=== PATIENT | female | born 1955 | race African-American/Black ===

== ENCOUNTER 2021-01-27 09:10 | Inpatient (IN) | payer OTHER, MEDICAID ==
[~2021-01-27] VITALS: Ht 154.9 cm; Wt 77.8 kg
[2021-01-27] MEDS ORDERED: VANCOMYCIN 1 G PREMIX 200 ML IV ONE (09:45)
[2021-01-27] MEDS ORDERED: PIPERACILLIN/TAZ 3.375G PREMIX 50 ML IV ONE (09:45)
[2021-01-27 10:14] LABS: HEMATOCRIT. 32.4 % (36.0-48.0); HEMOGLOBIN. 10.4 g/dL (12.0-16.0); MEAN CORPUSCULAR HEMOGLOBIN 30.3 pg (28.0-32.0); MEAN CORPUSCULAR VOLUME 94.6 fL (81.0-99.0); MEAN PLATELET VOLUME 7.7 fl (7.4-10.4); PLATELET 419 x1000/uL (130-400); RED BLOOD CELL COUNT 3.43 mill/uL (4.2-5.4); RED CELL DISTRIBUTION WIDTH 16.9 % (11.6-14.6)
[2021-01-27 10:23] LABS: CHLORIDE 117 mEq/L (98-107)
[2021-01-27] MEDS ORDERED: SODIUM BICARBONATE 8.4% 1 MEQ/ML 50ML SYR IV ONE (11:00)
[2021-01-27 11:24] LABS: BG BASE EXCESS -6.3 mmol/L (-2.0-2.0); BG CARBOXYHEMOGLOBIN 0.5 % (0.5-1.5); BG DEOXYHEMOGLOBIN 2.6 % (0.0-5.0); BG FRACTION INSPIRED OXYGEN 21; BG HCO3 ACT 16.8 mmol/L (22.0-26.0); BG OXYGEN SATURATION 97.4 % (92.0-98.5); BG OXYHEMOGLOBIN 96.9 % (94.0-97.0); BG PCO2 25.6 mmHg (35.0-45.0); BG PH 7.435 (7.350-7.450); BG PO2 94.3 mmHg (75.0-100.0); BG SAMPLE SITE LEFT BRACHIAL; BG TOTAL HEMOGLOBIN 9.4 g/dL (12.0-18.0); BG VENT MODE ROOM AIR
[2021-01-27] MEDS ORDERED: FUROSEMIDE 20MG/2ML VIAL IVP ONE (11:30)
[2021-01-27 11:33] LABS: PROTHROMBIN TIME 10.9 sec (9.6-11.0)
[2021-01-27 13:09] LABS: PLATELET ESTIMATE INCREASED
[2021-01-27 15:34] LABS: CLARITY URINE CLEAR (CLEAR); COLOR URINE YELLOW (YELLOW); KETONES URINE NEGATIVE (NEGATIVE); LEUKOCYTE ESTERASE URINE NEGATIVE (NEGATIVE); NITRITE URINE NEGATIVE (NEGATIVE); OCCULT BLOOD URINE NEGATIVE (NEGATIVE); PH URINE 5.5 (4.5-8.0); PROTEIN URINE NEGATIVE (NEGATIVE); SPECIFIC GRAVITY URINE 1.009 (1.005-1.030); UROBILINOGEN URINE 0.2 E.U./dL (0.2-1.0)
[2021-01-27 22:42] VITALS: BP 113/42
[2021-01-27 23:00] VITALS: BP 113/42
[2021-01-27] MEDS ORDERED: FOLI-43 PO (23:50)
[2021-01-28] VITALS: BP 111/55
[2021-01-28] MEDS: CEFTRIAXONE 1,000 MG in DEXTROSE 5% WATER 50 ML IV SCH (03:52)
[2021-01-28 04:00] VITALS: BP 103/66
[2021-01-28] MEDS: ACETAMINOPHEN 325MG TABLET PO PRN (04:02)
[2021-01-28 06:46] LABS: BASOPHILS % 0.3 % (0.0-2.0); EOSINOPHILS % 0.3 % (0.0-5.0); HEMOGLOBIN. 7.2 g/dL (12.0-16.0); LYMPHOCYTES % 12.5 % (20.0-50.0); MEAN CORPUSCULAR HEMOGLOBIN 30.7 pg (28.0-32.0); MEAN CORPUSCULAR VOLUME 93.3 fL (81.0-99.0); MEAN PLATELET VOLUME 7.4 fl (7.4-10.4); MONOCYTES % 12.6 % (2.0-8.0); NEUTROPHILS % 74.3 % (40.0-76.0); PLATELET 277 x1000/uL (130-400); RED BLOOD CELL COUNT 2.36 mill/uL (4.2-5.4); RED CELL DISTRIBUTION WIDTH 16.4 % (11.6-14.6)
[2021-01-28 06:53] LABS: CHLORIDE 117 mEq/L (98-107)
[2021-01-28 08:00] VITALS: BP 124/53
[2021-01-28] MEDS: FUROSEMIDE 40MG/4ML VIAL IVP SCH ×2 (10:01→21:00)
[2021-01-28] MEDS: LISINOPRIL 20MG TABLET PO SCH (10:08)
[2021-01-28] MEDS: ENOXAPARIN 40MG/0.4ML SYR SUBCUT SCH (10:09)
[2021-01-28 12:00] VITALS: BP 120/53
[2021-01-28 16:00] VITALS: BP 105/49
[2021-01-28] MEDS: POTASSIUM CHLORIDE 20MEQ TABLET SR PO SCH ×2 (16:29→21:51)
[2021-01-28 20:00] VITALS: BP 99/47
[2021-01-28] MEDS: MORPHINE SULFATE 2 MG/ML CPJ (NOT FOR IM USE) IV PRN (22:13)
[2021-01-29] VITALS: BP 117/50
[2021-01-29] MEDS: POTASSIUM CHLORIDE 20MEQ TABLET SR PO SCH (00:38)
[2021-01-29] MEDS: CEFTRIAXONE 1,000 MG in DEXTROSE 5% WATER 50 ML IV SCH (00:40)
[2021-01-29 04:00] VITALS: BP 100/48
[2021-01-29] MEDS: MORPHINE SULFATE 2 MG/ML CPJ (NOT FOR IM USE) IV PRN ×3 (07:04→13:22)
[2021-01-29 08:00] VITALS: BP 132/62
[2021-01-29] MEDS: FUROSEMIDE 40MG/4ML VIAL IVP SCH ×2 (09:23→21:04)
[2021-01-29] MEDS: LISINOPRIL 20MG TABLET PO SCH (09:23)
[2021-01-29] MEDS: ACETAMINOPHEN 325MG TABLET PO PRN (10:15)
[2021-01-29 12:00] VITALS: BP 106/53
[2021-01-29] MEDS ORDERED: MAGNESIUM/ALUMINUM HYDROXIDE/SIMETHICONE 30ML UDC PO PRN (15:30)
[2021-01-29] MEDS ORDERED: CLONIDINE 0.1MG TABLET PO PRN (15:30)
[2021-01-29] MEDS ORDERED: IPRATROPIUM/ALBUTEROL 0.5-3(2.5)MG/3ML NEB HHN PRN (15:30)
[2021-01-29] MEDS ORDERED: ONDANSETRON HCL 4MG/2ML INJ IV PRN (15:30)
[2021-01-29 16:30] VITALS: BP 140/65
[2021-01-29] MEDS: HYDROCODONE/ACETAMINOPHEN 5/325MG TABLET PO PRN ×2 (18:33→22:40)
[2021-01-29 20:00] VITALS: BP 132/62
[2021-01-29 21:31] LABS: HEMATOCRIT 24.9 % (36.0-48.0); HEMOGLOBIN 8.3 g/dL (12.0-16.0); MEAN CORPUSCULAR HEMOGLOBIN 30.4 pg (28.0-32.0); MEAN CORPUSCULAR VOLUME 90.7 fL (81.0-99.0); PLATELET 323 x1000/uL (130-400); RED BLOOD CELL COUNT 2.75 mill/uL (4.2-5.4); RED CELL DISTRIBUTION WIDTH 16.2 % (11.6-14.6)
[2021-01-29 21:39] LABS: CHLORIDE 112 mEq/L (98-107)
[2021-01-29 21:47] LABS: TOTAL IRON BINDING CAPACITY 239 ug/dL (250-450)
[2021-01-29] MEDS: DOCUSATE SODIUM 100MG CAPSULE PO PRN (22:39)
[2021-01-30] VITALS: BP 130/57
[2021-01-30] MEDS: CEFTRIAXONE 1,000 MG in DEXTROSE 5% WATER 50 ML IV SCH (01:30)
[2021-01-30 04:00] VITALS: BP 125/58
[2021-01-30] MEDS: OMEPRAZOLE 20MG CAPSULE EXTENDED RELEASE PO SCH (06:06)
[2021-01-30] MEDS: HYDROCODONE/ACETAMINOPHEN 5/325MG TABLET PO PRN ×3 (06:14→20:03)
[2021-01-30 07:20] LABS: CHLORIDE 107 mEq/L (98-107)
[2021-01-30 07:22] LABS: BASOPHILS % 0.5 % (0.0-2.0); EOSINOPHILS % 3.2 % (0.0-5.0); HEMATOCRIT. 25.5 % (36.0-48.0); HEMOGLOBIN. 8.4 g/dL (12.0-16.0); LYMPHOCYTES % 16.8 % (20.0-50.0); MEAN CORPUSCULAR HEMOGLOBIN 30.3 pg (28.0-32.0); MEAN CORPUSCULAR VOLUME 91.9 fL (81.0-99.0); MEAN PLATELET VOLUME 7.3 fl (7.4-10.4); MONOCYTES % 9.1 % (2.0-8.0); NEUTROPHILS % 70.4 % (40.0-76.0); PLATELET 318 x1000/uL (130-400); RED BLOOD CELL COUNT 2.77 mill/uL (4.2-5.4); RED CELL DISTRIBUTION WIDTH 16.4 % (11.6-14.6)
[2021-01-30 07:28] LABS: HDL CHOLESTEROL 46 mg/dL (40-59)
[2021-01-30 07:29] LABS: PHOSPHORUS 3.4 mg/dL (2.5-4.9)
[2021-01-30 07:30] LABS: LDL CHOLESTEROL 56 mg/dL (5-100)
[2021-01-30 08:00] VITALS: BP 132/73
[2021-01-30] MEDS: LISINOPRIL 20MG TABLET PO SCH (10:04)
[2021-01-30] MEDS: FUROSEMIDE 40MG/4ML VIAL IVP SCH ×2 (10:05→20:03)
[2021-01-30 12:00] VITALS: BP 127/61
[2021-01-30] MEDS: MORPHINE SULFATE 2 MG/ML CPJ (NOT FOR IM USE) IV PRN ×2 (13:32→17:49)
[2021-01-30 16:00] VITALS: BP 157/75
[2021-01-30] MEDS ORDERED: LACTULOSE 20G/30ML UDC PO NR (17:30)
[2021-01-30 20:00] VITALS: BP 113/56
[2021-01-30] MEDS: DILTIAZEM HCL 60MG TABLET PO SCH (22:01)
[2021-01-31] VITALS (7 sets, daily range): BP systolic 114–149; BP diastolic 53–72
[2021-01-31] MEDS: CEFTRIAXONE 1,000 MG in DEXTROSE 5% WATER 50 ML IV SCH (00:31)
[2021-01-31] MEDS: HYDROCODONE/ACETAMINOPHEN 5/325MG TABLET PO PRN ×2 (00:39→09:35)
[2021-01-31] MEDS: DILTIAZEM HCL 60MG TABLET PO SCH ×3 (05:04→22:56)
[2021-01-31] MEDS: DOCUSATE SODIUM 100MG CAPSULE PO PRN ×2 (05:05→22:56)
[2021-01-31] MEDS: MORPHINE SULFATE 2 MG/ML CPJ (NOT FOR IM USE) IV PRN ×2 (05:05→20:09)
[2021-01-31 06:52] LABS: CHLORIDE 102 mEq/L (98-107)
[2021-01-31] MEDS: OMEPRAZOLE 20MG CAPSULE EXTENDED RELEASE PO SCH (06:52)
[2021-01-31 07:05] LABS: BASOPHILS % 0.2 % (0.0-2.0); EOSINOPHILS % 3.6 % (0.0-5.0); HEMATOCRIT. 24.6 % (36.0-48.0); HEMOGLOBIN. 8.4 g/dL (12.0-16.0); LYMPHOCYTES % 17.7 % (20.0-50.0); MEAN CORPUSCULAR HEMOGLOBIN 30.6 pg (28.0-32.0); MEAN CORPUSCULAR VOLUME 89.8 fL (81.0-99.0); MEAN PLATELET VOLUME 7.3 fl (7.4-10.4); MONOCYTES % 12.1 % (2.0-8.0); NEUTROPHILS % 66.4 % (40.0-76.0); PLATELET 341 x1000/uL (130-400); RED BLOOD CELL COUNT 2.74 mill/uL (4.2-5.4); RED CELL DISTRIBUTION WIDTH 15.8 % (11.6-14.6)
[2021-01-31] MEDS: FUROSEMIDE 40MG/4ML VIAL IVP SCH ×2 (09:33→20:08)
[2021-01-31] MEDS: SULFAMETHOXAZOLE/TRIMETHOPRIM 800/160MG TABLET PO SCH ×2 (13:18→22:57)
[2021-01-31] MEDS: ACETAMINOPHEN 325MG TABLET PO PRN (16:45)
[2021-01-31] MEDS: FAMOTIDINE 20MG TABLET PO SCH (20:08)
[2021-02-01] VITALS: BP 119/65
[2021-02-01 04:00] VITALS: BP 131/54
[2021-02-01] MEDS: DILTIAZEM HCL 60MG TABLET PO SCH ×3 (06:01→21:44)
[2021-02-01] MEDS: HYDROCODONE/ACETAMINOPHEN 5/325MG TABLET PO PRN ×2 (06:21→10:54)
[2021-02-01 07:11] LABS: CHLORIDE 97 mEq/L (98-107)
[2021-02-01 07:22] LABS: BASOPHILS % 0.3 % (0.0-2.0); EOSINOPHILS % 3.5 % (0.0-5.0); HEMOGLOBIN. 9.4 g/dL (12.0-16.0); LYMPHOCYTES % 17.9 % (20.0-50.0); MEAN CORPUSCULAR HEMOGLOBIN 29.8 pg (28.0-32.0); MEAN CORPUSCULAR VOLUME 91.9 fL (81.0-99.0); MEAN PLATELET VOLUME 7.2 fl (7.4-10.4); MONOCYTES % 13.4 % (2.0-8.0); NEUTROPHILS % 64.9 % (40.0-76.0); PLATELET 417 x1000/uL (130-400); RED BLOOD CELL COUNT 3.15 mill/uL (4.2-5.4); RED CELL DISTRIBUTION WIDTH 15.9 % (11.6-14.6)
[2021-02-01 08:00] VITALS: BP 115/50
[2021-02-01] MEDS: DOCUSATE SODIUM 100MG CAPSULE PO PRN (09:03)
[2021-02-01] MEDS: FAMOTIDINE 20MG TABLET PO SCH ×2 (09:03→21:44)
[2021-02-01] MEDS: FUROSEMIDE 40MG/4ML VIAL IVP SCH ×2 (09:03→21:44)
[2021-02-01] MEDS: SULFAMETHOXAZOLE/TRIMETHOPRIM 800/160MG TABLET PO SCH ×2 (09:03→21:44)
[2021-02-01] MEDS ORDERED: LACTULOSE 20G/30ML UDC PO NR (11:45)
[2021-02-01] MEDS ORDERED: BISACODYL 10MG SUPP PR PRN (11:45)
[2021-02-01 12:00] VITALS: BP 168/73
[2021-02-01 16:00] VITALS: BP 110/59
[2021-02-01 20:00] VITALS: BP 128/65
[2021-02-02] VITALS: BP 132/53
[2021-02-02 04:00] VITALS: BP 105/50
[2021-02-02] MEDS: DILTIAZEM HCL 60MG TABLET PO SCH ×3 (05:18→22:00)
[2021-02-02 08:00] VITALS: BP 117/56
[2021-02-02] MEDS: ENOXAPARIN 40MG/0.4ML SYR SUBCUT SCH (09:05)
[2021-02-02] MEDS: FUROSEMIDE 40MG/4ML VIAL IVP SCH ×2 (09:05→20:28)
[2021-02-02] MEDS: SULFAMETHOXAZOLE/TRIMETHOPRIM 800/160MG TABLET PO SCH ×2 (09:05→20:28)
[2021-02-02] MEDS: FAMOTIDINE 20MG TABLET PO SCH ×2 (09:05→20:28)
[2021-02-02 12:00] VITALS: BP 121/58
[2021-02-02 12:21] LABS: HEMATOCRIT. 27.3 % (36.0-48.0); MEAN CORPUSCULAR HEMOGLOBIN 29.6 pg (28.0-32.0); MEAN CORPUSCULAR VOLUME 89.6 fL (81.0-99.0); MEAN PLATELET VOLUME 7.7 fl (7.4-10.4); PLATELET 472 x1000/uL (130-400); RED BLOOD CELL COUNT 3.05 mill/uL (4.2-5.4); RED CELL DISTRIBUTION WIDTH 15.4 % (11.6-14.6)
[2021-02-02 13:50] LABS: CHLORIDE 96 mEq/L (98-107)
[2021-02-02 14:04] LABS: PLATELET ESTIMATE MARKEDLY INCREASED
[2021-02-02 16:00] VITALS: BP 125/60
[2021-02-02 20:00] VITALS: BP 106/55
[2021-02-02] MEDS: ACETAMINOPHEN 325MG TABLET PO PRN (20:28)
[2021-02-03] VITALS: BP 124/61
[2021-02-03 04:00] VITALS: BP 132/56
[2021-02-03] MEDS: DILTIAZEM HCL 60MG TABLET PO SCH ×2 (05:31→12:50)
[2021-02-03 08:00] VITALS: BP 133/57
[2021-02-03] MEDS: ENOXAPARIN 40MG/0.4ML SYR SUBCUT SCH (08:47)
[2021-02-03] MEDS: FUROSEMIDE 40MG/4ML VIAL IVP SCH ×2 (08:47→21:13)
[2021-02-03] MEDS: SULFAMETHOXAZOLE/TRIMETHOPRIM 800/160MG TABLET PO SCH ×2 (08:47→21:13)
[2021-02-03] MEDS: FAMOTIDINE 20MG TABLET PO SCH ×2 (08:47→21:14)
[2021-02-03] MEDS: ACETAMINOPHEN 325MG TABLET PO PRN ×2 (08:49→19:15)
[2021-02-03 13:00] VITALS: BP 170/68
[2021-02-03] MEDS: DILTIAZEM HCL 120MG CAPSULE CD 24HR PO SCH (14:26)
[2021-02-03 16:00] VITALS: BP 131/61
[2021-02-03 20:00] VITALS: BP 111/66
[2021-02-04] VITALS: BP 130/66
[2021-02-04 04:00] VITALS: BP 126/56
[2021-02-04] MEDS: ACETAMINOPHEN 325MG TABLET PO PRN ×4 (06:11→21:16)
[2021-02-04 08:00] VITALS: BP 138/62
[2021-02-04] MEDS: DILTIAZEM HCL 120MG CAPSULE CD 24HR PO SCH (10:50)
[2021-02-04] MEDS: ENOXAPARIN 40MG/0.4ML SYR SUBCUT SCH (10:50)
[2021-02-04] MEDS: FUROSEMIDE 40MG/4ML VIAL IVP SCH ×2 (10:50→21:15)
[2021-02-04] MEDS: FAMOTIDINE 20MG TABLET PO SCH ×2 (10:51→21:15)
[2021-02-04] MEDS: SULFAMETHOXAZOLE/TRIMETHOPRIM 800/160MG TABLET PO SCH ×2 (10:51→21:15)
[2021-02-04 12:00] VITALS: BP 99/63
[2021-02-04] MEDS: DOCUSATE SODIUM 100MG CAPSULE PO PRN (12:09)
[2021-02-04 16:00] VITALS: BP 132/61
[2021-02-04 16:10] LABS: CLARITY URINE CLEAR (CLEAR); COLOR URINE YELLOW (YELLOW); KETONES URINE NEGATIVE (NEGATIVE); LEUKOCYTE ESTERASE URINE NEGATIVE (NEGATIVE); NITRITE URINE NEGATIVE (NEGATIVE); OCCULT BLOOD URINE NEGATIVE (NEGATIVE); PROTEIN URINE NEGATIVE (NEGATIVE); SPECIFIC GRAVITY URINE 1.016 (1.005-1.030)
[2021-02-04 17:34] LABS: BASOPHILS % 1.2 % (0.0-2.0); EOSINOPHILS % 3.2 % (0.0-5.0); HEMATOCRIT. 26.8 % (36.0-48.0); HEMOGLOBIN. 8.9 g/dL (12.0-16.0); LYMPHOCYTES % 30.1 % (20.0-50.0); MEAN CORPUSCULAR HEMOGLOBIN 30.1 pg (28.0-32.0); MEAN CORPUSCULAR VOLUME 90.4 fL (81.0-99.0); MONOCYTES % 14.1 % (2.0-8.0); NEUTROPHILS % 51.4 % (40.0-76.0); PLATELET 628 x1000/uL (130-400); RED BLOOD CELL COUNT 2.96 mill/uL (4.2-5.4); RED CELL DISTRIBUTION WIDTH 15.2 % (11.6-14.6)
[2021-02-04 17:38] LABS: CHLORIDE 97 mEq/L (98-107)
[2021-02-04 20:00] VITALS: BP 133/61
[2021-02-05] VITALS (7 sets, daily range): BP systolic 116–155; BP diastolic 57–83
[2021-02-05] MEDS: ACETAMINOPHEN 325MG TABLET PO PRN ×3 (03:41→20:19)
[2021-02-05] MEDS: DILTIAZEM HCL 120MG CAPSULE CD 24HR PO SCH (09:00)
[2021-02-05] MEDS: FUROSEMIDE 40MG/4ML VIAL IVP SCH ×2 (09:00→20:19)
[2021-02-05] MEDS: ENOXAPARIN 40MG/0.4ML SYR SUBCUT SCH (09:00)
[2021-02-05] MEDS: FAMOTIDINE 20MG TABLET PO SCH ×2 (09:00→20:19)
[2021-02-05] MEDS: DOCUSATE SODIUM 100MG CAPSULE PO PRN (09:00)
[2021-02-05] MEDS: SULFAMETHOXAZOLE/TRIMETHOPRIM 800/160MG TABLET PO SCH ×2 (09:01→20:19)
[2021-02-06] VITALS: BP 134/65
== END 2021-02-06 02:30 | DRG 871 ==
LOC: ER 09:10 → 5WST 11:26 → EDBEDREQ 11:29 → ENRESERV 20:52
PROVIDERS: ADMIT Internal Medicine; ATTEND Internal Medicine
DX: A41.9 Sepsis, unspecified organism (principal); I50.33 Acute on chronic diastolic (congestive) heart failure; L03.115 Cellulitis of right lower limb; L97.919 Non-pressure chronic ulcer of unspecified part of right lower leg with unspecified severity; L97.929 Non-pressure chronic ulcer of unspecified part of left lower leg with unspecified severity; L03.116 Cellulitis of left lower limb; I87.8 Other specified disorders of veins; I87.2 Venous insufficiency (chronic) (peripheral); J44.9 Chronic obstructive pulmonary disease, unspecified; S80.822A Blister (nonthermal), left lower leg, initial encounter; I73.9 Peripheral vascular disease, unspecified; D64.9 Anemia, unspecified; E87.6 Hypokalemia; I11.0 Hypertensive heart disease with heart failure; X58.XXXA Exposure to other specified factors, initial encounter; E66.9 Obesity, unspecified; Z88.9 Allergy status to unspecified drugs, medicaments and biological substances; Z99.3 Dependence on wheelchair; Y93.89 Activity, other specified; Y92.89 Other specified places as the place of occurrence of the external cause; Y99.8 Other external cause status; Z68.32 Body mass index [BMI] 32.0-32.9, adult; R53.81 Other malaise; M21.922 Unspecified acquired deformity of left upper arm
CPT/HCPCS: 36415; 36600; 71045; 73030; 73630; 80048; 80053; 80061; 80076; 81003; 82270; 82375; 82805; 82962; 83540; 83550; 83605; 83735; 83880; 84100; 84145; 84443; 84484; 85025; 85027; 85044; 87077; 87186; 93005; 93306; 93923; 93970; 97022; 97110; 97162; 97164; 97166; 97530; 99291; C1893; J0696; J1650; J1940; J2270; J2543; J3370; J3490; J7040; J7060; A4315

== ENCOUNTER 2022-03-24 18:32 | Inpatient (IN) | payer OTHER, MEDICAID ==
[~2022-03-24] VITALS: Ht 167.6 cm; Wt 88.0 kg
[~2022-03-24 18:32] MED LIST: FOLI-43 PO
[2022-03-24] MEDS ORDERED: PIPERACILLIN/TAZ 3.375G PREMIX 50 ML IV ONE (19:15)
[2022-03-24] MEDS ORDERED: SODIUM CHLORIDE 0.9% 1000ML BAG (SEPSIS BOLUS) IV ONE (19:15)
[2022-03-24] MEDS ORDERED: VANCOMYCIN 1G PREMIX 200 ML IV ONE (19:15)
[2022-03-24] MEDS ORDERED: MORPHINE SULFATE 4 MG/ML CPJ (NOT FOR IM USE) IV STA (19:16)
[2022-03-24] MEDS ORDERED: ONDANSETRON HCL 4MG/2ML INJ IV STA (19:16)
[2022-03-24 19:46] LABS: BASOPHILS % 0.2 % (0.0-2.0); EOSINOPHILS % 0.3 % (0.0-5.0); HEMATOCRIT. 33.6 % (36.0-48.0); HEMOGLOBIN. 10.8 g/dL (12.0-16.0); LYMPHOCYTES % 8.1 % (20.0-50.0); MEAN CORPUSCULAR HEMOGLOBIN 28.7 pg (28.0-32.0); MEAN CORPUSCULAR VOLUME 89.4 fL (81.0-99.0); MEAN PLATELET VOLUME 7.4 fl (7.4-10.4); MONOCYTES % 4.9 % (2.0-8.0); NEUTROPHILS % 86.5 % (40.0-76.0); PLATELET 309 x1000/uL (130-400); RED BLOOD CELL COUNT 3.76 mill/uL (4.2-5.4); RED CELL DISTRIBUTION WIDTH 15.4 % (11.6-14.6)
[2022-03-24 19:55] LABS: CHLORIDE 114 mEq/L (98-107)
[2022-03-24 19:57] LABS: PARTIAL THROMBOPLASTIN TIME 27.1 sec (23.4-31.0); PROTHROMBIN TIME 10.9 sec (9.6-11.0)
[2022-03-24] MEDS ORDERED: VANCOMYCIN 1G PREMIX 200 ML IV NR (22:15)
[2022-03-24] MEDS ORDERED: ONDANSETRON HCL 4MG/2ML INJ IV NR (22:15)
[2022-03-24] MEDS ORDERED: PIPERACILLIN/TAZ 3.375G PREMIX 50 ML IV NR (22:15)
[2022-03-24 22:47] LABS: CLARITY URINE CLOUDY (CLEAR); COLOR URINE YELLOW (YELLOW); KETONES URINE NEGATIVE (NEGATIVE); LEUKOCYTE ESTERASE URINE 2+ (NEGATIVE); NITRITE URINE POSITIVE (NEGATIVE); OCCULT BLOOD URINE 2+ (NEGATIVE); PROTEIN URINE 1+ (NEGATIVE); SPECIFIC GRAVITY URINE 1.022 (1.005-1.030); UROBILINOGEN URINE 0.2 E.U./dL (0.2-1.0)
[2022-03-24] MEDS: MORPHINE SULFATE 4 MG/ML CPJ (NOT FOR IM USE) IV NR (22:53)
[2022-03-25] MEDS: MORPHINE SULFATE 4 MG/ML CPJ (NOT FOR IM USE) IV NR ×2 (02:19→03:47)
[2022-03-25 09:04] VITALS: BP 137/74
[2022-03-25] MEDS ORDERED: HYDROCODONE/ACETAMINOPHEN 5/325MG TABLET PO PRN (11:00)
[2022-03-25] MEDS ORDERED: ONDANSETRON HCL 4MG/2ML INJ IV PRN (11:00)
[2022-03-25 12:00] VITALS: BP 135/59
[2022-03-25] MEDS ORDERED: VANCOMYCIN 1G PREMIX 200 ML IV SCH (13:00)
[2022-03-25] MEDS: CEFTRIAXONE 1,000 MG in DEXTROSE 5% WATER 50 ML IV SCH (13:32)
[2022-03-25] MEDS: DIPHENHYDRAMINE 25MG CAPSULE PO PRN (15:38)
[2022-03-25] MEDS: ACETAMINOPHEN 325MG TABLET PO PRN ×2 (15:38→23:53)
[2022-03-25 16:00] VITALS: BP 137/61
[2022-03-25 20:00] VITALS: BP 134/64
[2022-03-26] VITALS: BP 132/64
[2022-03-26 04:00] VITALS: BP 143/63
[2022-03-26 08:00] VITALS: BP 156/74
[2022-03-26] MEDS ORDERED: VANCOMYCIN 1G PREMIX 200 ML IV SCH (08:00)
[2022-03-26] MEDS: CEFTRIAXONE 1,000 MG in DEXTROSE 5% WATER 50 ML IV SCH (10:03)
[2022-03-26 12:00] VITALS: BP 142/70
[2022-03-26 16:00] VITALS: BP 138/72
[2022-03-26] MEDS: ACETAMINOPHEN 325MG TABLET PO PRN (19:22)
[2022-03-26] MEDS ORDERED: NALOXONE HCL 0.4MG/ML VIAL IV PRN (19:45)
[2022-03-26 20:00] VITALS: BP 164/60
[2022-03-26] MEDS: CLONIDINE 0.1MG TABLET PO PRN (20:58)
[2022-03-27] VITALS: BP 149/63
[2022-03-27 01:44] LABS: CHLORIDE 107 mEq/L (98-107)
[2022-03-27 04:00] VITALS: BP 144/62
[2022-03-27] MEDS ORDERED: VANCOMYCIN 1G PREMIX 200 ML IV SCH (04:00)
[2022-03-27 08:00] VITALS: BP 154/61
[2022-03-27] MEDS: CEFTRIAXONE 1,000 MG in DEXTROSE 5% WATER 50 ML IV SCH (09:35)
[2022-03-27] MEDS: ACETAMINOPHEN 325MG TABLET PO PRN ×2 (10:03→20:40)
[2022-03-27 12:00] VITALS: BP 152/64
[2022-03-27] MEDS ORDERED: BACL20TA PO (13:53)
[2022-03-27] MEDS ORDERED: VANCOMYCIN 750 MG in DEXT 5% WATER 250 ML IV SCH (14:00)
[2022-03-27] MEDS ORDERED: VANCOMYCIN 750MG PREMIX 150 ML IV SCH (14:00)
[2022-03-27 16:00] VITALS: BP 150/58
[2022-03-27] MEDS: DIPHENHYDRAMINE 25MG CAPSULE PO PRN (17:23)
[2022-03-27 20:00] VITALS: BP 146/63
[2022-03-27] MEDS: BACLOFEN 10MG TABLET PO SCH (21:46)
[2022-03-28] VITALS: BP 139/70
[2022-03-28 04:15] VITALS: BP 160/73
[2022-03-28] MEDS: BACLOFEN 10MG TABLET PO SCH ×3 (05:40→21:23)
[2022-03-28] MEDS: DIPHENHYDRAMINE 25MG CAPSULE PO PRN ×2 (05:52→14:11)
[2022-03-28 08:00] VITALS: BP 150/68
[2022-03-28] MEDS: CEFTRIAXONE 1,000 MG in DEXTROSE 5% WATER 50 ML IV SCH (08:10)
[2022-03-28 12:00] VITALS: BP 152/70
[2022-03-28] MEDS: ACETAMINOPHEN 325MG TABLET PO PRN ×2 (12:43→12:45)
[2022-03-28] MEDS: MULTIVITAMINS,THER W-MINERALS TABLET PO SCH (14:11)
[2022-03-28] MEDS: VANCOMYCIN 750MG PREMIX 150 ML IV SCH (14:11)
[2022-03-28] MEDS: GABAPENTIN 300MG CAPSULE PO SCH ×2 (14:31→21:23)
[2022-03-28 15:34] VITALS: BP 153/78
[2022-03-28 20:00] VITALS: BP 149/66
[2022-03-29] VITALS: BP 136/59
[2022-03-29] MEDS: VANCOMYCIN 750MG PREMIX 150 ML IV SCH ×2 (01:31→18:02)
[2022-03-29 04:00] VITALS: BP 138/63
[2022-03-29] MEDS: BACLOFEN 10MG TABLET PO SCH ×3 (05:14→22:21)
[2022-03-29] MEDS: GABAPENTIN 300MG CAPSULE PO SCH ×3 (05:14→22:22)
[2022-03-29 08:00] VITALS: BP 152/63
[2022-03-29] MEDS: CEFTRIAXONE 1,000 MG in DEXTROSE 5% WATER 50 ML IV SCH (08:03)
[2022-03-29] MEDS: MULTIVITAMINS,THER W-MINERALS TABLET PO SCH (08:03)
[2022-03-29 12:00] VITALS: BP 153/56
[2022-03-29 12:34] LABS: CHLORIDE 109 mEq/L (98-107)
[2022-03-29] MEDS: ACETAMINOPHEN 325MG TABLET PO PRN ×2 (14:22→22:26)
[2022-03-29 16:00] VITALS: BP 145/64
[2022-03-29 20:00] VITALS: BP 140/79
[2022-03-30] MEDS: DIPHENHYDRAMINE 25MG CAPSULE PO PRN ×2 (00:29→18:15)
[2022-03-30 04:00] VITALS: BP 137/54
[2022-03-30] MEDS: VANCOMYCIN 750MG PREMIX 150 ML IV SCH ×2 (06:01→18:15)
[2022-03-30] MEDS: GABAPENTIN 300MG CAPSULE PO SCH ×3 (06:01→22:44)
[2022-03-30] MEDS: BACLOFEN 10MG TABLET PO SCH ×3 (06:02→22:44)
[2022-03-30] MEDS: ACETAMINOPHEN 325MG TABLET PO PRN (07:44)
[2022-03-30 08:00] VITALS: BP 122/51
[2022-03-30] MEDS: MULTIVITAMINS,THER W-MINERALS TABLET PO SCH (08:32)
[2022-03-30 12:00] VITALS: BP 138/53
[2022-03-30] MEDS ORDERED: LACTULOSE 20G/30ML UDC PO NR (14:15)
[2022-03-30 16:00] VITALS: BP 140/80
[2022-03-30 20:00] VITALS: BP_SYST 102; BP_SYST 115; BP_DIAS 54
[2022-03-31] VITALS: BP 115/54
[2022-03-31 04:00] VITALS: BP 142/61
[2022-03-31] MEDS: GABAPENTIN 300MG CAPSULE PO SCH ×3 (06:57→21:31)
[2022-03-31] MEDS: BACLOFEN 10MG TABLET PO SCH ×3 (06:57→21:31)
[2022-03-31] MEDS: ACETAMINOPHEN 325MG TABLET PO PRN ×2 (07:00→21:39)
[2022-03-31 07:54] VITALS: BP 149/63
[2022-03-31] MEDS: MULTIVITAMINS,THER W-MINERALS TABLET PO SCH (08:32)
[2022-03-31 11:45] VITALS: BP 144/53
[2022-03-31] MEDS: LIDOCAINE 5% PATCH TOP SCH (15:46)
[2022-03-31 16:00] VITALS: BP 151/50
[2022-03-31 20:00] VITALS: BP 135/85
[2022-03-31] MEDS: DIPHENHYDRAMINE 25MG CAPSULE PO PRN (21:36)
[2022-04-01] VITALS: BP 145/49
[2022-04-01 04:00] VITALS: BP 153/68
[2022-04-01] MEDS: BACLOFEN 10MG TABLET PO SCH ×3 (06:03→23:54)
[2022-04-01] MEDS: GABAPENTIN 300MG CAPSULE PO SCH ×3 (06:03→23:53)
[2022-04-01 08:00] VITALS: BP 154/63
[2022-04-01] MEDS: ACETAMINOPHEN 325MG TABLET PO PRN ×2 (09:35→23:53)
[2022-04-01] MEDS: MULTIVITAMINS,THER W-MINERALS TABLET PO SCH (09:36)
[2022-04-01] MEDS: LIDOCAINE 5% PATCH TOP SCH (09:36)
[2022-04-01 12:00] VITALS: BP 145/68
[2022-04-01 16:00] VITALS: BP 130/63
[2022-04-01 20:00] VITALS: BP 144/58
[2022-04-01] MEDS: DIPHENHYDRAMINE 25MG CAPSULE PO PRN (23:55)
[2022-04-02] VITALS: BP 138/68
[2022-04-02 04:00] VITALS: BP 149/55
[2022-04-02] MEDS: BACLOFEN 10MG TABLET PO SCH ×2 (05:47→14:12)
[2022-04-02] MEDS: GABAPENTIN 300MG CAPSULE PO SCH ×2 (05:47→14:12)
[2022-04-02 08:00] VITALS: BP 145/62
[2022-04-02] MEDS: MULTIVITAMINS,THER W-MINERALS TABLET PO SCH (08:30)
[2022-04-02] MEDS: LIDOCAINE 5% PATCH TOP SCH (08:35)
[2022-04-02 12:00] VITALS: BP 150/58
[2022-04-02] MEDS: ACETAMINOPHEN 325MG TABLET PO PRN (14:19)
[2022-04-02 16:00] VITALS: BP 146/64
[2022-04-02 20:00] VITALS: BP 143/56
[2022-04-03] VITALS: BP 138/66
[2022-04-03 04:00] VITALS: BP 148/65
[2022-04-03] MEDS: BACLOFEN 10MG TABLET PO SCH ×4 (05:26→21:31)
[2022-04-03] MEDS: GABAPENTIN 300MG CAPSULE PO SCH ×3 (05:26→21:31)
[2022-04-03] MEDS: ACETAMINOPHEN 325MG TABLET PO PRN ×3 (05:29→21:31)
[2022-04-03 08:00] VITALS: BP 123/63
[2022-04-03] MEDS: SERTRALINE HCL 25MG TABLET PO SCH (08:15)
[2022-04-03] MEDS: MULTIVITAMINS,THER W-MINERALS TABLET PO SCH (08:15)
[2022-04-03] MEDS: LIDOCAINE 5% PATCH TOP SCH (08:16)
[2022-04-03 11:35] VITALS: BP 143/62
[2022-04-03] MEDS: METHYL SALICYLATE/MENTHOL CREAM 85GM TOP PRN (13:26)
[2022-04-03 15:31] VITALS: BP 128/78
[2022-04-03 20:52] VITALS: BP 118/61
[2022-04-03] MEDS: DIPHENHYDRAMINE 25MG CAPSULE PO PRN (21:31)
[2022-04-04] VITALS: BP 121/65
[2022-04-04 04:00] VITALS: BP 139/63
[2022-04-04] MEDS: ACETAMINOPHEN 325MG TABLET PO PRN ×3 (06:56→20:12)
[2022-04-04] MEDS: GABAPENTIN 300MG CAPSULE PO SCH ×3 (06:56→21:13)
[2022-04-04] MEDS: BACLOFEN 10MG TABLET PO SCH ×3 (06:56→21:14)
[2022-04-04 08:00] VITALS: BP 119/63
[2022-04-04] MEDS: MULTIVITAMINS,THER W-MINERALS TABLET PO SCH (08:00)
[2022-04-04] MEDS: LIDOCAINE 5% PATCH TOP SCH (08:00)
[2022-04-04] MEDS: SERTRALINE HCL 25MG TABLET PO SCH (08:01)
[2022-04-04 11:36] VITALS: BP 141/58
[2022-04-04 15:52] VITALS: BP 142/77
[2022-04-04 20:00] VITALS: BP 108/68
[2022-04-04] MEDS: DIPHENHYDRAMINE 25MG CAPSULE PO PRN (21:20)
[2022-04-05] VITALS: BP 128/54
[2022-04-05 04:00] VITALS: BP 134/54
[2022-04-05] MEDS: ACETAMINOPHEN 325MG TABLET PO PRN ×3 (04:51→20:59)
[2022-04-05] MEDS: DIPHENHYDRAMINE 25MG CAPSULE PO PRN ×2 (04:51→13:12)
[2022-04-05] MEDS: GABAPENTIN 300MG CAPSULE PO SCH ×3 (05:03→20:56)
[2022-04-05] MEDS: BACLOFEN 10MG TABLET PO SCH ×3 (05:03→20:56)
[2022-04-05 08:00] VITALS: BP 144/94
[2022-04-05] MEDS: MULTIVITAMINS,THER W-MINERALS TABLET PO SCH (08:32)
[2022-04-05] MEDS: SERTRALINE HCL 25MG TABLET PO SCH (08:32)
[2022-04-05] MEDS: LIDOCAINE 5% PATCH TOP SCH (08:33)
[2022-04-05 12:00] VITALS: BP 127/51
[2022-04-05] MEDS: METHYL SALICYLATE/MENTHOL CREAM 85GM TOP PRN (15:27)
[2022-04-05 16:00] VITALS: BP 125/63
[2022-04-05 20:00] VITALS: BP 132/63
[2022-04-06] VITALS: BP 141/73
[2022-04-06] MEDS: DIPHENHYDRAMINE 25MG CAPSULE PO PRN ×2 (03:49→21:53)
[2022-04-06 04:00] VITALS: BP 144/51
[2022-04-06] MEDS: BACLOFEN 10MG TABLET PO SCH ×3 (05:29→21:50)
[2022-04-06] MEDS: GABAPENTIN 300MG CAPSULE PO SCH ×3 (05:29→21:49)
[2022-04-06 08:00] VITALS: BP 104/59
[2022-04-06] MEDS: SERTRALINE HCL 25MG TABLET PO SCH (08:41)
[2022-04-06] MEDS: MULTIVITAMINS,THER W-MINERALS TABLET PO SCH (08:41)
[2022-04-06] MEDS: LIDOCAINE 5% PATCH TOP SCH (08:44)
[2022-04-06 12:00] VITALS: BP 127/55
[2022-04-06] MEDS: ACETAMINOPHEN 325MG TABLET PO PRN ×2 (13:25→21:54)
[2022-04-06 16:00] VITALS: BP 130/46
[2022-04-06 20:00] VITALS: BP 148/66
[2022-04-07] VITALS: BP 145/58
[2022-04-07 04:00] VITALS: BP 137/64
[2022-04-07] MEDS: BACLOFEN 10MG TABLET PO SCH ×3 (05:48→21:20)
[2022-04-07] MEDS: GABAPENTIN 300MG CAPSULE PO SCH ×3 (05:48→21:20)
[2022-04-07 08:00] VITALS: BP 107/53
[2022-04-07] MEDS: SERTRALINE HCL 25MG TABLET PO SCH (09:18)
[2022-04-07] MEDS: MULTIVITAMINS,THER W-MINERALS TABLET PO SCH (09:18)
[2022-04-07] MEDS: LIDOCAINE 5% PATCH TOP SCH (09:21)
[2022-04-07] MEDS: ACETAMINOPHEN 325MG TABLET PO PRN ×2 (09:24→16:51)
[2022-04-07 12:00] VITALS: BP 146/71
[2022-04-07 16:50] VITALS: BP 196/66
[2022-04-07] MEDS: CLONIDINE 0.1MG TABLET PO PRN (16:51)
[2022-04-07 20:00] VITALS: BP 134/61
[2022-04-07] MEDS: DIPHENHYDRAMINE 25MG CAPSULE PO PRN (21:20)
[2022-04-08] VITALS: BP 130/59
[2022-04-08] MEDS: ACETAMINOPHEN 325MG TABLET PO PRN ×2 (00:57→08:18)
[2022-04-08 04:00] VITALS: BP 156/49
[2022-04-08] MEDS: BACLOFEN 10MG TABLET PO SCH (04:59)
[2022-04-08] MEDS: GABAPENTIN 300MG CAPSULE PO SCH (04:59)
[2022-04-08 08:00] VITALS: BP 143/68
[2022-04-08] MEDS: LIDOCAINE 5% PATCH TOP SCH (08:18)
[2022-04-08] MEDS: MULTIVITAMINS,THER W-MINERALS TABLET PO SCH (08:18)
[2022-04-08] MEDS: DIPHENHYDRAMINE 25MG CAPSULE PO PRN (08:18)
[2022-04-08] MEDS: SERTRALINE HCL 25MG TABLET PO SCH (08:18)
[2022-04-08 10:26] VITALS: BP 143/68
[2022-04-08] MEDS ORDERED: DIPH25CA83 MT (14:24)
== END 2022-04-08 15:35 | disposition home health service (06) | DRG 872 ==
LOC: ER 18:32 → MICUSO 22:08 → 8WST 03-25 07:18
PROVIDERS: ADMIT Internal Medicine; ATTEND Internal Medicine
DX: A41.9 Sepsis, unspecified organism (principal); L03.116 Cellulitis of left lower limb; N39.0 Urinary tract infection, site not specified; L03.115 Cellulitis of right lower limb; D64.9 Anemia, unspecified; E87.8 Other disorders of electrolyte and fluid balance, not elsewhere classified; I10 Essential (primary) hypertension; L97.529 Non-pressure chronic ulcer of other part of left foot with unspecified severity; Z20.822 Contact with and (suspected) exposure to COVID-19; L97.519 Non-pressure chronic ulcer of other part of right foot with unspecified severity; E03.9 Hypothyroidism, unspecified; F32.A Depression, unspecified; M89.58 Osteolysis, other site; M19.071 Primary osteoarthritis, right ankle and foot; I87.2 Venous insufficiency (chronic) (peripheral); Z86.14 Personal history of Methicillin resistant Staphylococcus aureus infection
CPT/HCPCS: 36415; 71045; 73630; 80048; 80053; 80202; 81003; 83605; 83880; 84145; 84484; 85025; 86850; 86900; 87426; 93005; 93970; 97022; 97116; 97162; 97164; 97166; 97530; 97535; 99285; J0696; J2270; J2405; J2543; J3370; J7030; J7060; Q0163

== ENCOUNTER 2022-07-28 16:10 | Inpatient (IN) | payer MEDICARE, MEDICAID ==
[~2022-07-28] VITALS: Ht 167.6 cm; Wt 98.4 kg
[~2022-07-28 16:10] MED LIST changes: +BACL20TA PO; +DIPH25CA83 MT
[2022-07-28] MEDS ORDERED: PIPERACILLIN/TAZ 3.375G PREMIX 50 ML IV ONE (19:00)
[2022-07-28] MEDS ORDERED: CLINDAMYCIN 600 MG in DEXTROSE 5% WATER 50 ML IV ONE (19:00)
[2022-07-28] MEDS ORDERED: VANCOMYCIN 1G PREMIX 200 ML IV ONE (19:00)
[2022-07-28] MEDS ORDERED: CLINDAMYCIN 600MG PREMIX 50 ML IV NR (19:15)
[2022-07-28 19:20] LABS: BASOPHILS % 0.7 % (0.0-2.0); EOSINOPHILS % 4.2 % (0.0-5.0); HEMATOCRIT. 26.4 % (36.0-48.0); HEMOGLOBIN. 8.4 g/dL (12.0-16.0); MEAN CORPUSCULAR HEMOGLOBIN 30.1 pg (28.0-32.0); MEAN CORPUSCULAR VOLUME 94.8 fL (81.0-99.0); MEAN PLATELET VOLUME 6.8 fl (7.4-10.4); MONOCYTES % 9.5 % (2.0-8.0); NEUTROPHILS % 53.6 % (40.0-76.0); PLATELET 408 x1000/uL (130-400); RED BLOOD CELL COUNT 2.79 mill/uL (4.2-5.4); RED CELL DISTRIBUTION WIDTH 16.4 % (11.6-14.6)
[2022-07-28 19:28] LABS: CHLORIDE 113 mEq/L (98-107)
[2022-07-28 19:30] LABS: PROTHROMBIN TIME 10.7 sec (9.6-11.0)
[2022-07-28] MEDS ORDERED: VANCOMYCIN 1,000 MG in DEXT 5% WATER 250 ML IV NR (21:45)
[2022-07-28] MEDS ORDERED: PIPERACILLIN/TAZ 3.375G PREMIX 50 ML IV NR (23:30)
[2022-07-29] MEDS ORDERED: VANCOMYCIN 1G PREMIX 200 ML IV SCH (03:00)
[2022-07-29 04:51] VITALS: BP 175/63
[2022-07-29] MEDS: AMLODIPINE 10MG TABLET PO SCH ×2 (06:41→13:34)
[2022-07-29] MEDS: ACETAMINOPHEN 325MG TABLET PO PRN (06:41)
[2022-07-29 08:00] VITALS: BP 154/50
[2022-07-29 12:00] VITALS: BP 171/59
[2022-07-29] MEDS: VANCOMYCIN 750MG PREMIX 150 ML IV SCH ×2 (13:35→21:22)
[2022-07-29] MEDS: BACLOFEN 10MG TABLET PO PRN (13:44)
[2022-07-29] MEDS: PIPERACILLIN/TAZOBACTAM 3.375 G in DEXTROSE 5% WATER 50 ML IV SCH ×2 (14:00→21:22)
[2022-07-29 16:00] VITALS: BP 170/85
[2022-07-29] MEDS ORDERED: ONDANSETRON HCL 4MG/2ML INJ IV PRN (17:45)
[2022-07-29] MEDS ORDERED: CLONIDINE 0.1MG TABLET PO PRN (17:45)
[2022-07-29] MEDS ORDERED: VANCOMYCIN 1,000 MG in DEXT 5% WATER 250 ML IV SCH (21:00)
[2022-07-29] MEDS: HYDROCODONE/ACETAMINOPHEN 5/325MG TABLET PO PRN (21:22)
[2022-07-29] MEDS: HYDRALAZINE HCL 25MG TABLET PO SCH (21:22)
[2022-07-29] MEDS: ENOXAPARIN 30MG/0.3ML SYR SUBCUT SCH (21:24)
[2022-07-30] MEDS: HYDRALAZINE HCL 25MG TABLET PO SCH ×2 (05:41→16:44)
[2022-07-30] MEDS: PIPERACILLIN/TAZOBACTAM 3.375 G in DEXTROSE 5% WATER 50 ML IV SCH ×3 (05:41→20:49)
[2022-07-30] MEDS: HYDROCODONE/ACETAMINOPHEN 5/325MG TABLET PO PRN ×2 (06:13→16:36)
[2022-07-30] MEDS ORDERED: OMEPRAZOLE 20MG CAPSULE EXTENDED RELEASE PO SCH (07:20)
[2022-07-30 08:00] VITALS: BP 98/65
[2022-07-30] MEDS: AMLODIPINE 10MG TABLET PO SCH (10:08)
[2022-07-30] MEDS: BACLOFEN 10MG TABLET PO PRN (10:09)
[2022-07-30] MEDS: DOCUSATE SODIUM 100MG CAPSULE PO PRN ×2 (10:09→16:44)
[2022-07-30] MEDS: ENOXAPARIN 30MG/0.3ML SYR SUBCUT SCH ×2 (10:10→20:48)
[2022-07-30 12:00] VITALS: BP 141/76
[2022-07-30 16:00] VITALS: BP 152/73
[2022-07-30 18:11] LABS: CHLORIDE 102 mEq/L (98-107)
[2022-07-30 18:26] LABS: HDL CHOLESTEROL 95 mg/dL (40-59); LDL CHOLESTEROL 60 mg/dL (5-100); PHOSPHORUS 3.4 mg/dL (2.5-4.9); T4 FREE 1.17 ng/dL (0.76-1.46)
[2022-07-30 20:00] VITALS: BP 147/66
[2022-07-30] MEDS: VANCOMYCIN 750MG PREMIX 150 ML IV SCH (20:48)
[2022-07-30] MEDS ORDERED: NALOXONE HCL 0.4MG/ML VIAL IV PRN (21:15)
[2022-07-31] VITALS: BP 136/57
[2022-07-31] MEDS: HYDRALAZINE HCL 25MG TABLET PO SCH ×4 (01:34→22:03)
[2022-07-31 04:00] VITALS: BP 145/68
[2022-07-31] MEDS: PIPERACILLIN/TAZOBACTAM 3.375 G in DEXTROSE 5% WATER 50 ML IV SCH ×3 (05:31→21:44)
[2022-07-31] MEDS: VANCOMYCIN 750MG PREMIX 150 ML IV SCH (06:28)
[2022-07-31 08:00] VITALS: BP 125/58
[2022-07-31] MEDS: ACETAMINOPHEN 325MG TABLET PO PRN ×3 (08:59→20:14)
[2022-07-31] MEDS: AMLODIPINE 10MG TABLET PO SCH (08:59)
[2022-07-31] MEDS: ENOXAPARIN 30MG/0.3ML SYR SUBCUT SCH ×2 (08:59→20:13)
[2022-07-31 11:49] LABS: CHLORIDE 105 mEq/L (98-107)
[2022-07-31 12:00] VITALS: BP 136/62
[2022-07-31] MEDS ORDERED: SILVER SULFADIAZINE 1% CREAM 25GM TOP STA (13:30)
[2022-07-31 13:49] LABS: HEMATOCRIT. 26.9 % (36.0-48.0); HEMOGLOBIN. 8.7 g/dL (12.0-16.0); MEAN CORPUSCULAR HEMOGLOBIN 30.1 pg (28.0-32.0); MEAN CORPUSCULAR VOLUME 92.8 fL (81.0-99.0); MEAN PLATELET VOLUME 7.1 fl (7.4-10.4); PLATELET 392 x1000/uL (130-400); RED CELL DISTRIBUTION WIDTH 15.5 % (11.6-14.6)
[2022-07-31 14:19] LABS: PLATELET ESTIMATE NORMAL
[2022-07-31] MEDS: SILVER SULFADIAZINE 1% CREAM 50GM TOP SCH (15:29)
[2022-07-31 16:00] VITALS: BP 132/60
[2022-07-31 20:00] VITALS: BP 118/76
[2022-07-31] MEDS: DIPHENHYDRAMINE 50MG CAPSULE PO PRN (20:14)
[2022-07-31] MEDS: FAMOTIDINE 20MG TABLET PO SCH (21:44)
[2022-08-01] VITALS: BP 140/61
[2022-08-01] MEDS: VANCOMYCIN 1,000 MG in DEXT 5% WATER 250 ML IV SCH ×2 (01:08→19:19)
[2022-08-01] MEDS: ACETAMINOPHEN 325MG TABLET PO PRN ×3 (01:34→19:49)
[2022-08-01] MEDS: PIPERACILLIN/TAZOBACTAM 3.375 G in DEXTROSE 5% WATER 50 ML IV SCH ×3 (05:33→21:49)
[2022-08-01] MEDS: HYDRALAZINE HCL 25MG TABLET PO SCH ×3 (05:43→21:56)
[2022-08-01] MEDS: FAMOTIDINE 20MG TABLET PO SCH ×2 (09:54→21:49)
[2022-08-01] MEDS: AMLODIPINE 10MG TABLET PO SCH (09:54)
[2022-08-01] MEDS: DOCUSATE SODIUM 100MG CAPSULE PO PRN (09:55)
[2022-08-01] MEDS: MAGNESIUM/ALUMINUM HYDROXIDE/SIMETHICONE 30ML UDC PO PRN (09:55)
[2022-08-01] MEDS: ENOXAPARIN 30MG/0.3ML SYR SUBCUT SCH ×2 (09:55→21:48)
[2022-08-01] MEDS: HYDROCODONE/ACETAMINOPHEN 5/325MG TABLET PO PRN (09:56)
[2022-08-01] MEDS: SILVER SULFADIAZINE 1% CREAM 50GM TOP SCH (10:02)
[2022-08-01 20:00] VITALS: BP 153/64
[2022-08-02] MEDS: ACETAMINOPHEN 325MG TABLET PO PRN ×3 (00:52→22:18)
[2022-08-02 03:57] VITALS: BP 117/66
[2022-08-02] MEDS: HYDRALAZINE HCL 25MG TABLET PO SCH ×3 (05:41→22:15)
[2022-08-02] MEDS: PIPERACILLIN/TAZOBACTAM 3.375 G in DEXTROSE 5% WATER 50 ML IV SCH ×3 (05:42→22:15)
[2022-08-02 08:00] VITALS: BP 156/63
[2022-08-02 08:03] LABS: BASOPHILS % 0.6 % (0.0-2.0); EOSINOPHILS % 6.9 % (0.0-5.0); HEMATOCRIT. 29.5 % (36.0-48.0); HEMOGLOBIN. 9.2 g/dL (12.0-16.0); LYMPHOCYTES % 24.1 % (20.0-50.0); MEAN CORPUSCULAR HEMOGLOBIN 29.5 pg (28.0-32.0); MEAN CORPUSCULAR VOLUME 94.2 fL (81.0-99.0); MEAN PLATELET VOLUME 7.1 fl (7.4-10.4); MONOCYTES % 13.7 % (2.0-8.0); NEUTROPHILS % 54.7 % (40.0-76.0); PLATELET 390 x1000/uL (130-400); RED BLOOD CELL COUNT 3.14 mill/uL (4.2-5.4); RED CELL DISTRIBUTION WIDTH 15.4 % (11.6-14.6)
[2022-08-02] MEDS: AMLODIPINE 10MG TABLET PO SCH (09:46)
[2022-08-02] MEDS: ENOXAPARIN 30MG/0.3ML SYR SUBCUT SCH ×2 (09:46→22:14)
[2022-08-02] MEDS: FAMOTIDINE 20MG TABLET PO SCH ×2 (09:46→22:14)
[2022-08-02] MEDS: BACLOFEN 10MG TABLET PO PRN (09:47)
[2022-08-02] MEDS: DOCUSATE SODIUM 100MG CAPSULE PO PRN (09:47)
[2022-08-02] MEDS: SILVER SULFADIAZINE 1% CREAM 50GM TOP SCH (09:47)
[2022-08-02] MEDS: HYDROCODONE/ACETAMINOPHEN 5/325MG TABLET PO PRN (09:49)
[2022-08-02 10:59] LABS: CHLORIDE 104 mEq/L (98-107)
[2022-08-02 12:00] VITALS: BP 160/66
[2022-08-02] MEDS: VANCOMYCIN 1,000 MG in DEXT 5% WATER 250 ML IV SCH (13:51)
[2022-08-02] MEDS ORDERED: MORPHINE SULFATE 2 MG/ML CPJ (NOT FOR IM USE) IV NR (14:15)
[2022-08-02 16:28] VITALS: BP 144/61
[2022-08-02] MEDS: DIPHENHYDRAMINE 50MG CAPSULE PO PRN (16:46)
[2022-08-02 20:00] VITALS: BP 138/58
[2022-08-03] MEDS: PIPERACILLIN/TAZOBACTAM 3.375 G in DEXTROSE 5% WATER 50 ML IV SCH ×3 (06:40→22:04)
[2022-08-03] MEDS: HYDRALAZINE HCL 25MG TABLET PO SCH ×3 (06:55→21:29)
[2022-08-03] MEDS: ACETAMINOPHEN 325MG TABLET PO PRN (06:56)
[2022-08-03] MEDS: VANCOMYCIN 1,000 MG in DEXT 5% WATER 250 ML IV SCH (06:56)
[2022-08-03 07:56] LABS: HEMATOCRIT. 27.6 % (36.0-48.0); HEMOGLOBIN. 8.8 g/dL (12.0-16.0); MEAN CORPUSCULAR HEMOGLOBIN 29.8 pg (28.0-32.0); MEAN PLATELET VOLUME 6.8 fl (7.4-10.4); PLATELET 419 x1000/uL (130-400); RED BLOOD CELL COUNT 2.96 mill/uL (4.2-5.4); RED CELL DISTRIBUTION WIDTH 15.2 % (11.6-14.6)
[2022-08-03 08:00] VITALS: BP 128/59
[2022-08-03] MEDS: HYDROCODONE/ACETAMINOPHEN 5/325MG TABLET PO PRN (09:24)
[2022-08-03] MEDS: FAMOTIDINE 20MG TABLET PO SCH ×2 (09:25→21:28)
[2022-08-03] MEDS: AMLODIPINE 10MG TABLET PO SCH (09:25)
[2022-08-03] MEDS: ENOXAPARIN 30MG/0.3ML SYR SUBCUT SCH ×2 (09:28→21:28)
[2022-08-03] MEDS: SILVER SULFADIAZINE 1% CREAM 50GM TOP SCH (09:28)
[2022-08-03] MEDS: DOCUSATE SODIUM 100MG CAPSULE PO PRN (09:34)
[2022-08-03] MEDS: HYDROCODONE/ACETAMINOPHEN 5/325MG TABLET PO NR ×2 (10:15→13:30)
[2022-08-03 11:33] LABS: CHLORIDE 105 mEq/L (98-107)
[2022-08-03 11:48] VITALS: BP 145/55
[2022-08-03 14:52] LABS: PLATELET ESTIMATE SLIGHTLY INCREASED
[2022-08-03 16:00] VITALS: BP 152/61
[2022-08-03] MEDS: DIPHENHYDRAMINE 50MG CAPSULE PO PRN (16:59)
[2022-08-03 20:00] VITALS: BP 142/69
[2022-08-03] MEDS: HYDROCODONE/ACETAMINOPHEN 10/325MG TABLET PO PRN (21:30)
[2022-08-04] MEDS: BACLOFEN 10MG TABLET PO PRN (02:48)
[2022-08-04 04:00] VITALS: BP 123/60
[2022-08-04] MEDS: HYDRALAZINE HCL 25MG TABLET PO SCH ×3 (05:06→21:00)
[2022-08-04] MEDS: PIPERACILLIN/TAZOBACTAM 3.375 G in DEXTROSE 5% WATER 50 ML IV SCH ×3 (05:11→21:01)
[2022-08-04 07:55] VITALS: BP 150/64
[2022-08-04] MEDS: MAGNESIUM/ALUMINUM HYDROXIDE/SIMETHICONE 30ML UDC PO PRN (08:51)
[2022-08-04] MEDS: AMLODIPINE 10MG TABLET PO SCH (08:52)
[2022-08-04] MEDS: FAMOTIDINE 20MG TABLET PO SCH ×2 (08:52→21:00)
[2022-08-04] MEDS: HYDROCODONE/ACETAMINOPHEN 10/325MG TABLET PO PRN ×3 (08:52→18:55)
[2022-08-04] MEDS: ENOXAPARIN 30MG/0.3ML SYR SUBCUT SCH ×2 (08:54→21:01)
[2022-08-04] MEDS: SILVER SULFADIAZINE 1% CREAM 50GM TOP SCH ×2 (08:56→08:57)
[2022-08-04 08:58] LABS: HEMATOCRIT. 28.1 % (36.0-48.0); HEMOGLOBIN. 9.1 g/dL (12.0-16.0); MEAN CORPUSCULAR HEMOGLOBIN 29.8 pg (28.0-32.0); MEAN PLATELET VOLUME 6.9 fl (7.4-10.4); PLATELET 424 x1000/uL (130-400); RED BLOOD CELL COUNT 3.06 mill/uL (4.2-5.4)
[2022-08-04 12:00] VITALS: BP 166/63
[2022-08-04 12:18] LABS: CHLORIDE 108 mEq/L (98-107)
[2022-08-04 16:00] VITALS: BP 148/59
[2022-08-04] MEDS: DOXYCYCLINE HYCLATE 100MG CAPSULE PO SCH (16:54)
[2022-08-04 17:38] LABS: PLATELET ESTIMATE INCREASED
[2022-08-04 20:25] VITALS: BP 150/63
[2022-08-05 00:56] VITALS: BP 128/62
[2022-08-05] MEDS: HYDRALAZINE HCL 25MG TABLET PO SCH ×2 (05:13→13:49)
[2022-08-05] MEDS: PIPERACILLIN/TAZOBACTAM 3.375 G in DEXTROSE 5% WATER 50 ML IV SCH ×2 (05:13→13:44)
[2022-08-05] MEDS: HYDROCODONE/ACETAMINOPHEN 10/325MG TABLET PO PRN ×3 (05:16→16:42)
[2022-08-05 08:00] VITALS: BP 145/60
[2022-08-05] MEDS: FAMOTIDINE 20MG TABLET PO SCH (08:55)
[2022-08-05] MEDS: ENOXAPARIN 30MG/0.3ML SYR SUBCUT SCH (08:56)
[2022-08-05] MEDS: DOXYCYCLINE HYCLATE 100MG CAPSULE PO SCH (08:56)
[2022-08-05] MEDS: AMLODIPINE 10MG TABLET PO SCH (08:58)
[2022-08-05] MEDS ORDERED: AMOX1TAB16 PO (11:29)
[2022-08-05] MEDS ORDERED: LEVO750T68 MT (11:29)
[2022-08-05 11:58] VITALS: BP 148/55
[2022-08-05 16:00] VITALS: BP 140/76
[2022-08-05 16:42] VITALS: BP 146/78
== END 2022-08-05 17:00 | disposition home health service (06) | DRG 603 ==
LOC: ER 16:10 → 6EST 23:00 → ENRESERV 23:58
PROVIDERS: ADMIT Internal Medicine; ATTEND Internal Medicine
PROC: 05HY33Z Insertion of Infusion Device into Upper Vein, Percutaneous Approach (ICD-10-PCS; principal; 2022-07-30)
PROC: B54MZZA Ultrasonography of Right Upper Extremity Veins, Guidance (ICD-10-PCS; 2022-07-30)
DX: L03.116 Cellulitis of left lower limb (principal); E44.1 Mild protein-calorie malnutrition; L03.115 Cellulitis of right lower limb; I10 Essential (primary) hypertension; D64.9 Anemia, unspecified; E03.9 Hypothyroidism, unspecified; Z20.822 Contact with and (suspected) exposure to COVID-19; E66.01 Morbid (severe) obesity due to excess calories; E87.6 Hypokalemia; I87.2 Venous insufficiency (chronic) (peripheral); M06.9 Rheumatoid arthritis, unspecified; I89.0 Lymphedema, not elsewhere classified; E88.09 Other disorders of plasma-protein metabolism, not elsewhere classified; E05.00 Thyrotoxicosis with diffuse goiter without thyrotoxic crisis or storm; L97.519 Non-pressure chronic ulcer of other part of right foot with unspecified severity; L97.529 Non-pressure chronic ulcer of other part of left foot with unspecified severity; Z82.49 Family history of ischemic heart disease and other diseases of the circulatory system; Z68.35 Body mass index [BMI] 35.0-35.9, adult; Z79.899 Other long term (current) drug therapy
CPT/HCPCS: 36415; 36573; 73600; 73620; 80048; 80053; 80061; 80076; 80202; 83605; 83735; 84100; 84145; 84439; 84443; 84484; 85025; 87070; 87077; 87186; 87426; 93970; 97022; 97110; 97162; 97164; 97530; 99285; C1725; C1769; C1887; C1893; J1650; J2270; J2543; J3370; J3490; J7060; Q0163